=== PATIENT | male | born 1980 | race African-American/Black ===

== ENCOUNTER 2018-12-30 17:42 | Emergency (ER) | payer SELFPAY ==
[~2018-12-30] VITALS: Ht 165.1 cm; Wt 81.6 kg
--- NOTE | 2018-12-30 17:59 | PHYS DOC ---
Past Medical History Past Medical History: No Pertinent History Past Surgical History: No Surgical History Alcohol Use: None Drug Use: None Adult General Chief Complaint Chief Complaint: FOOT INJURY PAIN HPI HPI Patient is a 38 year old male with no significant medical history who presents to the ED today complaining of infection to the left third toe. Patient denies any fever. He states he wears steel toe shoes at work which have been digging into his left third toe. Patient states there is an open area to the toe that has been draining yellow material. Review of Systems Review of Systems Constitutional: Denies fever or chills [] Musculoskeletal: Denies back pain or joint pain [] Integument: Left third toe infection Neurologic: Denies headache, focal weakness or sensory changes [] All other systems were reviewed and found to be within normal limits, except as documented in this note. Allergies Allergies Allergies Coded Allergies Type Severity Reaction Last Updated Verified No Known Drug Allergies 11/27/14 No Physical Exam Physical Exam Constitutional: Well developed, well nourished, no acute distress, non-toxic appearance. [] Skin: Dorsal aspect of the left third toe with redness. There is an open center to this area with no drainage. No fluctuance noted. Neurovascular exam is intact to the left foot and toes. +2 left pedal pulse. Back: No tenderness, no CVA tenderness. [] Extremities: No tenderness, no cyanosis, no clubbing, ROM intact, no edema. [] Neurologic: Alert and oriented X 3, normal motor function, normal sensory function, no focal deficits noted. [] Psychologic: Affect normal, judgement normal, mood normal. [] EKG EKG [] Radiology/Procedures Radiology/Procedures [] Course & Med Decision Making Course & Med Decision Making Pertinent Labs and Imaging studies reviewed. (See chart for details) This is a 38-year-old male patient presented to the ED today complaining of cellulitis to the left third toe that began a week ago. Patient was given tetanus, discharged on Bactrim. Encouraged to keep the area clean and dry. Follow-up with PCP in 1-2 weeks. Dragon Disclaimer Dragon Disclaimer This electronic medical record was generated, in whole or in part, using a voice recognition dictation system. Departure Departure Impression: Primary Impression: Cellulitis of toe of left foot Disposition: HOME, SELF-CARE Condition: STABLE Referrals: NO PCP (PCP) follow up with your doctor in 1-2 weeks Patient Instructions: Cellulitis, [id number] Additional Instructions: You were seen with infection to the left third toe. Keep the area clean and dry. You can apply warm compresses to the area twice a day. Complete your antibiotics. Follow-up with your doctor in 1-2 weeks. Scripts Sulfamethoxazole/Trimethoprim (BACTRIM DS TABLET) 1 Each Tablet 1 TAB PO BID, #20 TAB Prov: DUARTE ALBARRAN APRN 12/30/18 DUARTE ALBARRAN APRN Dec 30, 2018 17:59
[2018-12-30 18:00] VITALS: BP 149/80
[2018-12-30] MEDS ORDERED: SULF1TAB24 PO (18:05)
[2018-12-30] MEDS ORDERED: DIPHTH,PERTUSS(ACELL),TET TOX 0.5 ML DISP.SYRIN. VAX IM ONE (18:15)
== END 2018-12-30 18:17 | disposition home or self-care (01) ==
LOC: ER 17:42
DX: L03.032 Cellulitis of left toe (principal)
CPT/HCPCS: 90471; 90715; 99283